=== PATIENT | male | born 1985 | race Two or more races ===

== ENCOUNTER 2023-05-14 13:11 | Outpatient (AMB) | payer OTHER, SELFPAY ==
--- NOTE | 2023-05-14 13:22 | HO.SPINEOV ---
Intake Intake Visit Reasons: back pain Intake Note: Mr. Slater is here today c/o back pain. 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 He reports that he has had persistent numbess and tingling in his L 3rd-5th phalanges (F) since his last post-op visit with DAILY Wyman. He also endorses continued bottom of the foot pain and posterior thigh pain. He reports that standing and bending exacerbate his pain, and that laying down alleviates his pain. He has continued to try OTC pain medications and stretching / walking to help alleviate his symptoms to no avail. He is concerned that his symptoms have worsened to the point where he feels it is difficult for him to work and complete his ADLs. DAILY Wyman recommended that he be re-evaluated 6 months out from last post-op visit and receive a F/U MRI to rule out further disc herniation / nerve impingement if his symptoms persisted. On exam the patient has preserved strength (5/5) in his upper and lower extremities despite eliciting pain. Reflexes 2+ intact in LEs. He does have a (+) straight leg raise on the L side. (-) Babinski, no clonus. He will be sent for a Lumbar MRI without contrast and can be re-assessed post MRI for further interventions. This case was discussed with Dr. Beaver who agrees to this plan. Total amount of time spent in this visit was 20 minutes in discussion of symptoms, prior surgery review and subsequent plan of care. Hiro Beaver MD,PhD [facility] Orders: Orders MR lumbar spine wo con Today M54.16 - Radiculopathy, lumbar region Coding Level of Care Code Global (75899) Diagnoses Lumbar radiculopathy M54.16
== END 2023-05-14 13:30 | disposition home or self-care (01) ==
PROVIDERS: Visit Provider Physician Assistant
DX: M54.16 Radiculopathy, lumbar region (principal)
CPT/HCPCS: 99213

== ENCOUNTER → 2023-05-14 13:11 | Outpatient (BNVA) | payer OTHER, SELFPAY | PROVIDERS: Visit Provider Physician Assistant | DX: M54.16 Radiculopathy, lumbar region (principal) | CPT/HCPCS: 99212 ==

== ENCOUNTER 2023-08-05 10:23 | Outpatient (REF) | payer OTHER, SELFPAY ==
--- NOTE | ~2023-08-05 | MR_ITS ---
EXAMINATION: MR LUMBAR SPINE WITHOUT CONTRAST CLINICAL INFORMATION: Radiculopathy, lumbar region COMPARISON: None available. TECHNIQUE: MRI of the lumbar spine was obtained using routine sequences without contrast. FINDINGS: Mild dextrocurvature of the lumbar spine. Slight straightening of the normal lumbar lordosis. Trace retrolisthesis at L4-L5. No abnormal bone marrow signal. The vertebral body heights are preserved. Multilevel disc desiccation without significant disc height loss. Modic type II endplate changes at L4-L5 and L5-S1. The visualized spinal cord is normal in caliber. No abnormal cord signal. The conus medullaris terminates at L1. T12-L1: No significant spinal canal or neural foraminal narrowing. L1-L2: No significant spinal canal or neural foraminal narrowing. L2-L3: No significant spinal canal or neural foraminal narrowing. L3-L4: Diffuse disc bulge. No significant spinal canal or neural foraminal narrowing. L4-L5: Diffuse disc bulge with superimposed central disc protrusion. Bilateral facet arthrosis. No significant spinal canal or neural foraminal narrowing. L5-S1: Diffuse disc bulge with superimposed left paracentral/subarticular disc protrusion. Bilateral facet arthrosis. No significant spinal canal stenosis. Mild to moderate left with the disc abutting the exiting L5 nerve roots bilaterally. The paravertebral soft tissues are unremarkable. There is dilation of the left renal pelvis with tapering just distal to the UPJ. MR/MR lumbar spine wo con IMPRESSION: -Mild multilevel lumbar spondylosis at L4-L5 and L5-S1. At L5-S1, there is mild to moderate left neural foraminal narrowing secondary to a left paracentral/subarticular disc protrusion which abuts the exiting L5 nerve roots bilaterally. -Nonspecific dilation of the left renal pelvis with tapering just distal to the UPJ. Recommend further evaluation with renal ultrasound if clinically warranted.
== END 2023-08-05 10:24 | disposition home or self-care (01) ==
LOC: HO.MRI 10:23
PROVIDERS: Visit Provider Physician Assistant
DX: M54.16 Radiculopathy, lumbar region (principal)
CPT/HCPCS: 72148

== ENCOUNTER 2023-08-14 13:26 | Outpatient (AMB) | payer OTHER, SELFPAY ==
--- NOTE | 2023-08-14 13:50 | HO.SPINEOV ---
Intake Intake Visit Reasons: numbness left leg Intake Note: Mr. Slater is here today c/o left leg pain and numbness. L/Spine MRI done @ [facility] [place]. Foundation Engineer Required: No Assessment & Plan Assessment & Plan (1) Recurrent herniation of lumbar disc: Code(s): M51.26 - Other intervertebral disc displacement, lumbar region Plan Dear colleague, On 08/14/2023, I saw for follow-up Anibal Slater. He status post L5-S1 lumbar microdiskectomy for left lumbar radiculopathy. He never had a full recovery. He is still experiencing a lot of pain radiating from the buttock down to his leg and he complains of numbness of the outer 3 toes. The pain prevents him from working. His sleep is disturbed due to radiating pain down his left leg. On exam, straight leg raise is positive with radiating pain down his left leg. There is numbness of the outer 3 toes of his left foot. The Achilles reflex is diminished. A repeat MRI done at [facility] on 08/05/2023 shows an L5-S1 disc herniation compressing the left S1 nerve root. In summary, this patient is suffering from a persistent left S1 radiculopathy due to an L5-S1 disc herniation. I scheduled hit him for a recurrent microdiskectomy on October 24, 2022. The patient is totally disabled for work due to his disc disease. I spent 33 minutes in his consult for history, physical exam, review of imaging and discussing plan of care. Alfredo Beaver MD, PhD Spine Fellowship Trained Neurosurgeon Director, [facility] Coding Level of Care Code Est Pt Level 4 (66900) Diagnoses Recurrent herniation of lumbar disc M51.26
== END 2023-08-14 14:08 | disposition home or self-care (01) ==
PROVIDERS: Visit Provider Neurological Surgery
DX: M51.26 Other intervertebral disc displacement, lumbar region (principal)
CPT/HCPCS: 99214

== ENCOUNTER → 2023-08-14 13:26 | Outpatient (BNVA) | payer OTHER, SELFPAY | PROVIDERS: Visit Provider Neurological Surgery | DX: M51.26 Other intervertebral disc displacement, lumbar region (principal) | CPT/HCPCS: 99212 ==

== ENCOUNTER 2023-10-24 07:53 | Day surgery (SDC) | payer OTHER, SELFPAY ==
[2023-10-09 12:10] VITALS: BMI 26.5
[2023-10-24] VITALS (10 sets, daily range): BP systolic 112–130; BP diastolic 67–93; PULSE 67–94; RESP 12–18; TEMP 36.6; O2SAT 92–99; BMI 29.5
--- NOTE | ~2023-10-24 | FL_ITS ---
EXAMINATION: Intraoperative fluoroscopy CLINICAL INFORMATION: Left side microlumbar decompression COMPARISON: Lumbar spine MRI 08/05/2023 TECHNIQUE: Intraoperative fluoroscopy was provided for use by Dr. Beaver. A total of 2 images were saved to PACS. A radiologist was not present during imaging. Today's dictation is only for administrative purposes to document intraoperative fluoroscopic usage. TOTAL FLUOROSCOPIC TIME: 0.0 minutes DAP: 0.034 mGy-cm FL/FL guidance in OR FINDINGS~\^^ Intraoperative fluoroscopy provided for use by Dr. Beaver. Please see operative note for detailed findings.
--- NOTE | 2023-10-24 06:55 | P.HPSUR_ITS ---
Pre-Procedural Eval Section A - 24 Hr Update-Section A only Date of Service: 10/24/23 The patient is an INPATIENT: No Changes since office visit: No Cold of Flu in the past 2 weeks, No New Medical Problems, No Changes in Medication and No Patient answered all questions The patient has been examined within 24 hours of the surgical procedure. The History & Physical has been completed within 30 days and I have reviewed it.: No Section B - Complete if H&P > 30 days Chief Complaint: Other intervertebral disc displacement, lumbar reg Allergies: Allergies Allergy/AdvReac Type Severity Reaction Status Date / Time No Known Allergies Allergy Verified 10/09/23 12:07 Review of Systems Sugical H&P ROS: Negative: Constitution, Cardiovascular, Respiratory, Neurological, Psychiatric, Hem-Onc, Allergic/Immunologic, Gastrointestinal, Genitourinary, Musculoskeletal, Integumentary, Endocrine and Eyes/Ears/Nose/Thr oat Exam Surgical H&P Exam: Not Evaluated: HEENT, Not Evaluated: Heart, Not Evaluated: Lungs, Not Evaluated: Extremities, Not Evaluated: Abdomen, Not Evaluated: Skin and Not Evaluated: Neurological Plan Diagnosis/Plan: Unchanged redo left L5-S1 microdiskectomy Time Spent With Patient Time: Total time managing care of this patient today ___5_ minutes.
[2023-10-24] MEDS: methocarbamoL 750 MG TABLET PO (08:54)
[2023-10-24] MEDS: Lactated Ringers 1,000 ML 80 ML IVCONT (08:54)
[2023-10-24] MEDS: Gabapentin 300 MG CAPSULE PO (08:54)
--- NOTE | 2023-10-24 09:40 | HO.ANESPROP2 ---
HPI - Anesthesia Eval Consult details Narrative: Lumbar Radiculopathy PMFSH Active Problems Active Problems: All Active Problems (Updated 10/09/23 @ 12:05 by Goldie Ricketts RN) Recurrent herniation of lumbar disc (Acute) Lumbar radiculopathy (Acute) Past Medical History Medical History Low back pain Congenital abnormality ureter H/O heartburn Depression Numbness and tingling of left leg Asthma Family History Family history of problems with anesthesia: No Surgical History Surgical History Hx of decompressive lumbar laminectomy (~07/2022) History of pyeloplasty (~2021) History of Problems with Anesthesia: No Social History Social History Household Members: Other Household Members Other:: mother Housing: Apartment Are you a primary family day care provider to a significant other at home: No Do you presently have visiting nurse or other home services: No Patient Tobacco Use Status: Never used Tobacco Use of substances other than those prescribed or required for medical reasons: Yes Substance Use Type: Marijuana Substance Use Frequency: Daily Have you been hit, kicked, punched, or otherwise hurt by someone within the past year? If so, by whom?: No Are you DNR?: No Advance Directives: No Advance Directives Information Provided: Yes Advance Directives on File: No Recently lost weight without trying: No Nutrition Risks: No Nutritional Risk Poor oral hygiene: No Meds Allergies Allergy/AdvReac Type Severity Reaction Status Date / Time No Known Allergies Allergy Verified 10/24/23 08:14 Active Medications: Current Medications Lactated Ringer's (Lr) 1,000 mls @ 80 mls/hr IVCONT .[id number] EUSEBIO Last Admin: 10/24/23 08:54 Dose: 80 mls/hr Home Medications Medication Instructions Recorded Confirmed Last Taken Type Tums PO PRN Heartburn 10/09/23 Unknown History Exam Height,Weight and Vital Signs: Height 5 ft 10 in Weight 93.259 kg Last Vital Signs Temp 97.9 F 10/24/23 08:45 Pulse 87 10/24/23 08:45 Resp 18 10/24/23 08:45 BP 126/79 10/24/23 08:45 Pulse Ox 96 10/24/23 08:45 O2 Del Method Room Air 10/24/23 08:45 Airway Mallampati Class: III TM Dist: >3cm Neck ROM: Full Loose/Missing/Broken Teeth: No Heart: rrr+s1s2 Lungs: cta b/l Assessment and Plan Assessment Anesthesia Assessment: Anesthesia Plan Discussed and Chart Reviewed Final Anesthetic Review Family History of Problems with Anesthesia: No History of Problems with Anesthesia: No NPO: Yes ASA Class: II Final Preanesthetic Review: No Changes in Pt Med Stat, Meds/Allgs Chart Reviewed, Consent Obtained/Reviewed and Anes Risks/Benef Reviewed Patient Risk: Intermediate Procedure Risk: Intermediate Assessment/Block/Sedation in SS: Assess/Block/Sedation-SS Anesthetic Plan Anesthetic Plan: GA Disposition: Standard PACU
--- NOTE | 2023-10-24 10:00 | P.OP_ITS ---
Operative Note Operative Note Date of Service: 10/24/23 Narrative: Preoperative diagnosis: Persistent S1 radiculopathy due to possible disc herniation Postoperative diagnosis: Absent recurrent disc herniation Procedure: Recurrent Left L5-S1 lumbar microdiskectomy with microscope Surgeon: Alfredo Beaver MD, PhD Ent Physician: Jordy calixto This patient underwent an L5-S1 lumbar microdiskectomy in the past but continues to complain of a persistent left S1 radiculopathy. An MRI maybe shows ongoing S1 nerve root compression therefore the patient was offered a re-exploration. The procedure complications were explained. The patient was consented. The patient was brought to the operating room and endotracheally intubated. The patient was turned in a prone position on the Ralph frame. Prepping and draping was done followed by time-out. The previous mid lumbar incision was made followed by release of the paravertebral muscles on the left side to expose the L5-S1 interspace. An intraoperative x-rays obtained to confirm the correct level. The microscope was brought in. The previous L5 laminotomy was extended cranially after which the dura was identified. Scar tissue was relieved after which S1 nerve root was identified. A nerve hook was used to go under the nerve root and no significant compression was found other than a small L5-S1 spondylolisthesis. A redo diskectomy was not required. Hemostasis was done. The microscope was removed. Marcaine was injected intramuscularly.The incision was closed in two layers. Steri-Strips used to approximate seizure. An op-site were taken there was used to cover the incision. All sponge and needle counts were correct. Patient was extubated and transported in stable condition to recovery room. this procedure was done with the aid of a physician account management assistant who performed the initial exposure until the microscope was brought in and performed the closure of the incision. Anesthesia: General Blood loss: 10 mL Complications: None Specimen: None Surgical time: Disposition: Discharge home
--- NOTE | 2023-10-24 10:08 | PM.DS ---
DS: Providers Provider Date of Service: 10/24/23 Date of discharge: 10/24/23 Primary care physician: Keith Desir MD Admitting clinician: Alfredo Beaver DS: Diagnosis Discharge Diagnosis (1) Recurrent herniation of lumbar disc: Status: Acute DS: Summary Time Attestation Discharge coordination time: Less than 30 minutes Quality: Safe Use of Opioids Does Pt have an Active Cancer Diagnosis on the Problem List?: No Quality: Stroke Does the patient have a stroke diagnosis?: No Physical Exam Vital Signs: Vital Signs: Last Vital Signs Temp 97.9 F 10/24/23 08:45 Pulse 87 10/24/23 08:45 Resp 18 10/24/23 08:45 BP 126/79 10/24/23 08:45 Pulse Ox 96 10/24/23 08:45 O2 Del Method Room Air 10/24/23 08:45 BMI result Body Mass Index 29.5 Discharge Plan Discharge Patient Disposition: Home, Self-Care Referrals: Keith Desir MD [Primary Care Provider] - 1 Week Discharge Medications: New oxycodone 5 mg tablet 5 mg PO Q4H PRN (Reason: pain) Qty: 20 0RF Rx Instructions: Partial Fill upon patient request. No Action Tums PO PRN (Reason: Heartburn) Discharge Orders: Discharge Order (Routine); Ordered 10/24/23 Ordered By: Jordy Wyman Diet: Advance to usual diet Activity on Discharge: As tolerated Activity Restrictions/Additional Instructions: After your spinal surgery we ask you to observe the following restrictions/guidelines: Activity: It is normal to feel some discomfort as you increase your activity, but that will improve with time. We ask you avoid heavy lifting or acitivities that cause pain. As a general rule, 8lbs is a safe limit for lifting right after surgery. Walk as much as you feel comfortable but not to exhaustion. You will feel extra tired the first few days after surgery. Stay well hydrated. It is OK to walk up and down stairs You may return to driving when you are off narcotics (such as vicodin, oxycodone, dilaudid, etc), and you are back to normal functional capacity. If you have any concerns please check with office before driving. Return to work is specific to each patient and each surgery, so please speak with your doctor/PA at first follow up. Please bring paperwork such as FMLA at that time if you need it filled out. Medications: For optimum pain control, it is best to start with a combination of 500 mg of Tylenol every 4 hours with 600 mg of Motrin every 8 hours, and use narcotics as needed in between for breakthrough pain. We will give you a short supply of narcotics after surgery (usually one weeks worth). If you need more please call the office but do not use more than prescribed. You will need to give our office 48 hours notice if you need narcotics refilled and we do not fill narcotics on weekends or evenings. If you are on a narcotic, it is a good idea to take a stool softener such as colace or senna to avoid constipation If you take blood thinner such as aspirin, Plavix, Coumadin, Effient, Eliquis etc for conditions such as Afib, DVT, Pulmonary embolus, coronary disease, stents etc please speak with your surgeon about specific details as to when you can resume these medications. You can resume NSAIDs on post op day 1 (eg: Motrin, Naproxen, etc). Follow up: Please call the office, , after surgery to arrange a 3 week follow up for wound check. Wound Care: You may remove your dressing on the first day after surgery. ?You may ?leave open to air. Please do not remove the steri strips underneath. they will fall off on their own in one week. IT IS NORMAL FOR THE WOUND TO OOZE OR BE BLOODY FOR A FEW DAYS AFTER SURGERY. ?IF THIS HAPPENS JUST PLACE NEW DRESSING OVER IT TO AVOID STAINING CLOTHES. You may shower on post op day # 1 We ask that you do not let the water soak the wound. If it does get wet, just towel dry lightly. Please do not scrub your incision or place any type of chemical/ointment on the wound. No tub baths, pools or jacuzzis for one month. If you have any leaking or redness from your wound, or fevers, please call office
[2023-10-24] MEDS: fentaNYL citrate/PF 100 MCG/2 ML VIAL 50 MCG IVPUSH (10:43)
[2023-10-24] MEDS: oxyCODONE HCl Immed Release 5 MG TABLET PO (10:54)
== END 2023-10-24 12:54 | disposition home or self-care (01) ==
PROVIDERS: PCP Family Medicine; Visit Provider Neurological Surgery
PROC: (CPT 63042; principal; 2023-10-24 09:40)
DX: M51.26 Other intervertebral disc displacement, lumbar region (principal); M54.17 Radiculopathy, lumbosacral region; M43.17 Spondylolisthesis, lumbosacral region; J45.909 Unspecified asthma, uncomplicated; F12.90 Cannabis use, unspecified, uncomplicated; Z98.890 Other specified postprocedural states
CPT/HCPCS: 63042; J0131; J0690; J1100; J1170; J1885; J2250; J2405; J2704; J3010

== ENCOUNTER → 2023-10-24 07:53 | Outpatient (BNV) | payer OTHER, SELFPAY | PROVIDERS: PCP Family Medicine; Visit Provider Neurological Surgery | DX: M51.26 Other intervertebral disc displacement, lumbar region (principal) | CPT/HCPCS: 63042; 99499 ==

== ENCOUNTER 2023-11-12 15:20 | Outpatient (AMB) | payer OTHER, SELFPAY ==
--- NOTE | 2023-11-12 15:30 | HO.SPINEOV ---
Intake Intake Visit Reasons: 1st post op Intake Note: Mr. Slater is here today for his 1st post-op visit. Digital Photo Printer Required: No Allergies No Known Allergies Allergy (Verified 10/24/23 08:14) Assessment & Plan Assessment & Plan (1) Recurrent herniation of lumbar disc: Code(s): M51.26 - Other intervertebral disc displacement, lumbar region Plan Procedure: Recurrent Left L5-S1 lumbar microdiskectomy Anibal comes in today for his 1st postoperative visit. He reports he is satisfied with the surgery and feels better than he did pre-operatively. He still reports mild shooting pain down his posterior calf and some nonspecific tingling that remains in the bottom of his left foot. He feels these are normal postoperative vestiges, that will get better with time. He is completing all of his ADLs without issue. We discussed postoperative healing course, and he was encouraged to set a goal walking 1 mile per day. He was informed that he should not be weightlifting or bending excessively at this time. No new neurological deficits. Patient is able to ambulate well, rises from a seated position without difficulty. Incision site is closed, well healing, with no signs of drainage. We will follow-up with the patient in 6 weeks for his 2nd postoperative visit. Hiro Beaver MD,PhD [facility] Coding Level of Care Code Global (94034) Diagnoses Recurrent herniation of lumbar disc M51.26
== END 2023-11-12 15:45 | disposition home or self-care (01) ==
PROVIDERS: PCP Family Medicine; Visit Provider Physician Assistant
DX: M51.26 Other intervertebral disc displacement, lumbar region (principal)
CPT/HCPCS: 99024

== ENCOUNTER → 2023-11-12 15:20 | Outpatient (BNVA) | payer OTHER, SELFPAY | PROVIDERS: PCP Family Medicine; Visit Provider Physician Assistant | DX: Z48.89 Encounter for other specified surgical aftercare (principal); M51.26 Other intervertebral disc displacement, lumbar region | CPT/HCPCS: 99212 ==

== ENCOUNTER 2023-12-03 13:46 | Outpatient (AMB) | payer OTHER, SELFPAY ==
--- NOTE | 2023-12-03 14:03 | A.SPINEOV_ITS ---
Intake Intake Visit Reasons: back pain and swollen Intake Note: Mr. Slater is here today c/o back pain and swelling. Casino Floorperson Required: No Allergies No Known Allergies Allergy (Verified 10/24/23 08:14) Assessment & Plan Assessment & Plan (1) Lumbar radiculopathy: Code(s): M54.16 - Radiculopathy, lumbar region Plan Dear colleague, On 12/03/2023, I saw for a follow-up Anibal Slater. He is status post 2nd surgery for ongoing left leg pain on 10/25/2023. He is slowly recovering. He comes in today cause he noticed a swelling on his back after more activity. On inspection, the incision is healed. There is no clear swelling at the moment. I explained to the patient that increase activity most likely causes swelling of his musculature. He admitted that it started after he was advised to walk a mi a day. I told him to reduce the amount of activity to a level that he thinks is tolerable. I would like to follow-up in 2 months. Alfredo Beaver MD, PhD Spine Fellowship Trained Neurosurgeon Director, [facility] [place] [facility] Coding Level of Care Code Global (18094) Diagnoses Lumbar radiculopathy M54.16
== END 2023-12-03 14:24 | disposition home or self-care (01) ==
PROVIDERS: PCP Family Medicine; Visit Provider Neurological Surgery
DX: M54.16 Radiculopathy, lumbar region (principal)
CPT/HCPCS: 99024

== ENCOUNTER → 2023-12-03 13:46 | Outpatient (BNVA) | payer OTHER, SELFPAY | PROVIDERS: PCP Family Medicine; Visit Provider Neurological Surgery | DX: M54.16 Radiculopathy, lumbar region (principal) | CPT/HCPCS: 99212 ==

== ENCOUNTER 2024-02-07 11:24 | Outpatient (AMB) | payer OTHER, SELFPAY ==
--- NOTE | 2024-02-07 12:02 | A.SPINEOV_ITS ---
Intake Visit Reasons: 2month follow Intake Note: Mr. Slater is here today for a 2month F/u Clinical Exercise Specialist Required: No Allergies No Known Allergies Allergy (Verified 02/07/24 12:05) Assessment & Plan Assessment & Plan (1) Lumbar radiculopathy: Code(s): M54.16 - Radiculopathy, lumbar region Category: Medical (2) Previous back surgery: Code(s): Z98.890 - Other specified postprocedural states Category: Surgical Plan Dear colleague, On February 07, 2024, I saw for follow-up Anibal Slater. He underwent 2 surgeries to decompress the nerve root for left-sided leg pain. Unfortunately, the pain is not improving. He feels his foot is swollen when he puts on a shoe. At night he has severe back pain any constantly has to switch around to relieve the back and leg pain. We decided on repeating an MRI with contrast but I am suspicious that he is suffering from permanent neuropathy. I will see him back after the MRIs done. Alfredo Beaver MD, PhD Spine Fellowship Trained Neurosurgeon Director, [facility] [place] [facility] Orders: Orders MR lumbar spine wo/w con Today M54.16 - Radiculopathy, lumbar region, Z98.890 - Other specified postprocedural states Coding Level of Care Code Global (50009) Diagnoses Lumbar radiculopathy M54.16 Previous back surgery Z98.890
== END 2024-02-07 12:29 | disposition home or self-care (01) ==
PROVIDERS: PCP Family Medicine; Visit Provider Neurological Surgery
DX: M54.16 Radiculopathy, lumbar region (principal); Z98.890 Other specified postprocedural states
CPT/HCPCS: 99213

== ENCOUNTER → 2024-02-07 11:24 | Outpatient (BNVA) | payer OTHER, SELFPAY | PROVIDERS: PCP Family Medicine; Visit Provider Neurological Surgery | DX: M54.16 Radiculopathy, lumbar region (principal); Z98.890 Other specified postprocedural states | CPT/HCPCS: 99212 ==

== ENCOUNTER 2024-03-03 10:56 | Outpatient (REF) | payer OTHER, SELFPAY ==
--- NOTE | ~2024-03-03 | XR_ITS ---
EXAMINATION: XR LUMBOSACRAL SPINE WITH OBLIQUES CLINICAL INFORMATION: Postprocedural state. COMPARISON: Fluoroscopy in OR of 10/24/2023, MR lumbar spine 08/05/2023 TECHNIQUE: 4 views of the lumbar spine. FINDINGS: Mild dextroscoliosis of the thoracolumbar spine. Slight straightening of the normal lumbar lordosis. Facet arthritis in the [id number] lumbar spine. Mild multilevel lumbar spondylosis with mild loss of disc space height at L4-L5 and L5-S1. Alignment preserved on flexion and extension views. XR/XR lumbar spine 4V min IMPRESSION: Mild multilevel lumbar spondylosis with mild loss of disc space height at L4-L5 and L5-S1.
== END 2024-03-03 10:57 | disposition home or self-care (01) ==
LOC: HO.HOSX 10:56
PROVIDERS: Visit Provider Neurological Surgery
DX: M54.16 Radiculopathy, lumbar region (principal); Z98.890 Other specified postprocedural states
CPT/HCPCS: 72110

== ENCOUNTER 2024-04-02 14:45 | Outpatient (AMB) | payer OTHER, SELFPAY ==
--- NOTE | 2024-04-02 15:06 | HO.SPINEOV ---
Intake Visit Reasons: neurological exam/to approve MRI Intake Note: Mr. Slater, 39 y/o male, is here today for a neurological exam. Money Counter Required: No Allergies No Known Allergies Allergy (Verified 02/07/24 12:05) Assessment & Plan Assessment & Plan (1) Recurrent herniation of lumbar disc: Code(s): M51.26 - Other intervertebral disc displacement, lumbar region Category: Medical Plan Mr Slater is here in follow-up. An MRI of his lumbar spine was ordered by Dr. Beaver for persistent low back pain and left S1 radiculopathy but apparently according to the insurance company, that required an x-ray and a re-evaluation by 1 of the practitioners here in the office. I brought him back in and we reviewed everything again. This gentleman has had a history of a herniated disc in his back at L5-S1 on the left. He was in severe pain before that original surgery a few years back and underwent a discectomy with improvement, however did not have complete relief of the pain. Specifically, he has low back pain which radiates up his paraspinal musculature and with any flexion of his hip with extension of his knee in similar fashion to a straight leg raise test, will cause him to have severe pain radiating down the back of his leg into his calf into the outer part of his left foot. He will also see us gastrocnemius muscle cramping and spasming. He has undergone a 2nd operation after there were equivocal findings on an MRI done and we did not find any recurrent disc herniation. This is a let us this suspicion that this is a nerve injury related to his original disc herniation and will not respond to any surgery, however we wanted to do 1 final postoperative MRI just as a precaution. He has done medication trials postoperatively but no therapy or injections. This would include steroids, anti-inflammatories and muscle relaxers. On exam, he has no focal deficits but he does have an antalgic gait, positive straight leg raise at 20 degrees and absent Achilles reflexes bilaterally. Please accommodate this gentleman and allow his MRI to be ordered so we can exclude any residual compression on the nerve. We did briefly discuss the option of a spinal cord stimulator if the MRI is negative. For the record, he had lumbar x-rays but these did not show anything meaningful, his alignment is normal just some moderate degeneration at L5-S1. Total amount of time spent in this visit was 20 minutes in discussion of symptoms, lumbar X imaging results and subsequent plan of care Jordy Beaver MD,PhD [facility] Coding Level of Care Code Est Pt Level 3 (13904) Diagnoses Recurrent herniation of lumbar disc M51.26
== END 2024-04-02 15:20 | disposition home or self-care (01) ==
PROVIDERS: PCP Family Medicine; Visit Provider Physician Assistant
DX: M51.26 Other intervertebral disc displacement, lumbar region (principal)
CPT/HCPCS: 99213

== ENCOUNTER → 2024-04-02 14:45 | Outpatient (BNVA) | payer OTHER, SELFPAY | PROVIDERS: PCP Family Medicine; Visit Provider Physician Assistant | DX: M51.26 Other intervertebral disc displacement, lumbar region (principal) | CPT/HCPCS: 99212 ==

== ENCOUNTER 2024-05-11 12:43 | Outpatient (REF) | payer OTHER, SELFPAY ==
--- NOTE | ~2024-05-11 | MR_ITS ---
MR LUMBAR SPINE WITHOUT AND WITH CONTRAST CLINICAL INFORMATION: Lumbar region radiculopathy. COMPARISON: Lumbar spine radiographs August 05, 2023. Lumbar spine MRI August 05, 2023. TECHNIQUE: MRI of the lumbar spine was obtained using routine sequences with and without contrast. Intravenous contrast: 9 mL of Gadavist. FINDINGS: There are 5 nonrib-bearing lumbar-type vertebral bodies. Lumbar alignment is maintained. The vertebral body heights are preserved. There is moderate disc volume loss at L5-S1 and there is mild disc volume loss at L4-L5 with disc desiccation at both levels. There are Modic type I and limited to endplate signal changes at L5-S1 there are Modic degenerative endplate signal changes at L4-L5. There is a new partially imaged 1.6 cm region of enhancement within the upper T11 vertebral body, most likely enhancement related to an upper endplate Schmorl's node in this location that can be followed with a dedicated thoracic spine MRI or thoracic spine CT. There is no pathologic enhancement along the cauda equina nerve roots. The imaged lower thoracic spinal cord is unremarkable and the conus terminates at the T12-L1 level. Extrarenal pelvis on the left. Left-sided IVC. L1-L2: Posterior disc contour is normal. There is no central canal stenosis and there is no foraminal stenosis. L2-L3: Posterior disc contour is normal. There is mild bilateral facet arthropathy. There is no central canal stenosis and there is no foraminal stenosis. Findings unchanged. L3-L4: There is a diffuse annular disc bulge with a superimposed shallow central disc protrusion and there is mild bilateral facet arthropathy. There is no central canal stenosis and there is no foraminal stenosis. Findings are unchanged. L4-L5: Diffuse annular disc bulge with a superimposed shallow central disc protrusion and mild bilateral facet arthropathy. There is no central canal stenosis. There is mild foraminal encroachment bilaterally. L5-S1: There are redemonstrated postoperative changes following left hemilaminectomy and microdiscectomy. There is enhancing granulation/scar tissue within the left epidural space that partially encases the traversing left S1 nerve root. The previously seen left paracentral disc protrusion is decreased in size resulting in decreased now mild mass effect on the traversing left S1 nerve root. Osteophytic ridging and facet arthropathy result in mild bilateral foraminal encroachment. MR/MR lumbar spine wo/w con IMPRESSION: * At L5-S1, there are redemonstrated postoperative changes following left hemilaminectomy and microdiscectomy. There is enhancing granulation/scar tissue within the left epidural space that partially encases the traversing left S1 nerve root. Decrease in size of the previously seen left paracentral disc protrusion at this level then now results in slight posterior deflection of the traversing left S1 nerve root within the left subarticular zone without residual extrinsic compression. * Additional stable spondylitic changes as discussed above. Electronically signed by: Patrice Sosa MD 05/31/2024 03:40 PM EDT
[2024-05-11] MEDS: gadobutroL 10 ML VIAL IVPUSH (13:16)
== END 2024-05-11 12:44 | disposition home or self-care (01) ==
LOC: HO.MRI 12:43
PROVIDERS: PCP Family Medicine; Visit Provider Neurological Surgery
DX: M54.16 Radiculopathy, lumbar region (principal); Z98.890 Other specified postprocedural states
CPT/HCPCS: 72158; A9585

== ENCOUNTER 2024-06-29 11:38 | Outpatient (AMB) | payer OTHER, SELFPAY ==
[2024-06-29 11:41] VITALS: BP 118/60; PULSE 60; RESP 14; O2SAT 98; BMI 28.7
--- NOTE | 2024-06-29 11:41 | A.OFFVIS_ITS ---
Vital Signs 06/29/24 11:41 Height 5 ft 10 in Weight 200 lb BMI 28.7 BP 118/60 Blood Pressure Location Lt brachial Position Sitting Respiration 14 Pulse 60 Pulse Source Pulse Oximeter Pulse Oximetry (%) 98 Oxygen Delivery Method Room Air Intake Visit Reasons: lumbar radiculopathy Allergies No Known Allergies Allergy (Verified 06/29/24 11:43) Medication List - Last Reconciled 06/29/24 by Kinjal Zuluaga LPN [Tums PO PRN] HPI HPI lumbar radiculopathy: Details: 39-year-old male who presents today to the office for lumbar radiculopathy. The patient had L5-S1 microdiskectomy in August 2022 but never had a full recovery. He still experiencing a lot of pain radiating from the buttock down to his leg. He reports that he has had persistent numbness and tingling in his left leg, 3rd?5th phalanges. He also endorses continued bottom of the foot pain and posterior thigh pain. The pain prevents him from working. His sleep is disturbed due to radiating pain down his left leg. He underwent recurrent left L5-S1 lumbar microdiscectomy on 10/24/23 and felt better post procedure. He still reports mild shooting pain down his posterior calf and some nonspecific tingling that remains in the bottom of his left foot. At night he has severe back pain and constantly has to switch around to relieve the back and leg pain. He reports that standing and bending exacerbate his pain, and that laying down alleviates his pain. He has continued to try OTC pain medications and stretching/walking to help alleviate his symptoms, to no avail. [facility] Medical History Low back pain Congenital abnormality ureter H/O heartburn Depression Numbness and tingling of left leg Asthma Surgical History Hx of decompressive lumbar laminectomy (~07/2022) History of pyeloplasty (~2021) Social History Household Members: Other Household Members Other:: mother Housing: Apartment Are you a primary before and after school daycare worker to a significant other at home: No Do you presently have visiting nurse or other home services: No Patient Tobacco Use Status: Never used Tobacco Substance Use Type: Marijuana Review of Systems Const All systems reviewed & are unremarkable except as noted in HPI and below Physical Exam Vital Signs: Last Vital Signs Pulse 60 06/29/24 11:41 Resp 14 06/29/24 11:41 BP 118/60 06/29/24 11:41 Pulse Ox 98 06/29/24 11:41 Oxygen Delivery Method Room Air 06/29/24 11:41 BMI result Body Mass Index 28.7 General: Appears afebrile. Alert and oriented. Mood and affect appropriate. Follows and participates in conversation appropriately. Respiratory effort is unlabored. Able to transition from sit to stand unassisted. Ambulates with bilaterally normal heel strike and toe off. Results Reviewed Results Reviewed: 05/11/24: MR LUMBAR SPINE WITHOUT AND WITH CONTRAST FINDINGS: There are 5 nonrib-bearing lumbar-type vertebral bodies. Lumbar alignment is maintained. The vertebral body heights are preserved. There is moderate disc volume loss at L5-S1 and there is mild disc volume loss at L4-L5 with disc desiccation at both levels. There are Modic type I and limited to endplate signal changes at L5-S1 there are Modic degenerative endplate signal changes at L4-L5. There is a new partially imaged 1.6 cm region of enhancement within the upper T11 vertebral body, most likely enhancement related to an upper endplate Schmorl's node in this location that can be followed with a dedicated thoracic spine MRI or thoracic spine CT. There is no pathologic enhancement along the cauda equina nerve roots. The imaged lower thoracic spinal cord is unremarkable and the conus terminates at the T12-L1 level. Extrarenal pelvis on the left. Left-sided IVC. L1-L2: Posterior disc contour is normal. There is no central canal stenosis and there is no foraminal stenosis. L2-L3: Posterior disc contour is normal. There is mild bilateral facet arthropathy. There is no central canal stenosis and there is no foraminal stenosis. Findings unchanged. L3-L4: There is a diffuse annular disc bulge with a superimposed shallow central disc protrusion and there is mild bilateral facet arthropathy. There is no central canal stenosis and there is no foraminal stenosis. Findings are unchanged. L4-L5: Diffuse annular disc bulge with a superimposed shallow central disc protrusion and mild bilateral facet arthropathy. There is no central canal stenosis. There is mild foraminal encroachment bilaterally. L5-S1: There are redemonstrated postoperative changes following left hemilaminectomy and microdiscectomy. There is enhancing granulation/scar tissue within the left epidural space that partially encases the traversing left S1 nerve root. The previously seen left paracentral disc protrusion is decreased in size resulting in decreased now mild mass effect on the traversing left S1 nerve root. Osteophytic ridging and facet arthropathy result in mild bilateral foraminal encroachment. IMPRESSION: * At L5-S1, there are redemonstrated postoperative changes following left hemilaminectomy and microdiscectomy. There is enhancing granulation/scar tissue within the left epidural space that partially encases the traversing left S1 nerve root. Decrease in size of the previously seen left paracentral disc protrusion at this level then now results in slight posterior deflection of the traversing left S1 nerve root within the left subarticular zone without residual extrinsic compression. Assessment & Plan Assessment & Plan (1) Lumbar radiculopathy: Code(s): M54.16 - Radiculopathy, lumbar region Category: Medical (2) Postlaminectomy syndrome: Code(s): M96.1 - Postlaminectomy syndrome, not elsewhere classified Category: Medical Plan Discussed spinal cord stimulator as a possible treatment option. Will place a referral for psychology clearance. Once we have received psychology clearance, we will plan for trial of spinal cord stimulator. The patient will receive a call from [facility] for the psychology assessment. Scribed for Dr. Medina by Talha Montano, medical education specialist, on 06/29/2024. I, Dr. Medina, have personally reviewed and agree with the information entered by the scribe. Coding Level of Care Code New Pt Level 4 (00361) Diagnoses Lumbar radiculopathy M54.16 Postlaminectomy syndrome M96.1
== END 2024-06-29 11:58 | disposition home or self-care (01) ==
LOC: HO.PMC 11:38
PROVIDERS: PCP Family Medicine; Visit Provider Internal Medicine
DX: M54.16 Radiculopathy, lumbar region (principal); M96.1 Postlaminectomy syndrome, not elsewhere classified
CPT/HCPCS: 99204

== ENCOUNTER → 2024-06-29 11:38 | Outpatient (BNVA) | payer OTHER, SELFPAY | PROVIDERS: PCP Family Medicine; Visit Provider Internal Medicine | DX: M54.16 Radiculopathy, lumbar region (principal); M96.1 Postlaminectomy syndrome, not elsewhere classified | CPT/HCPCS: 99202 ==

== ENCOUNTER 2025-04-14 11:41 | Day surgery (SDC) | payer OTHER, SELFPAY ==
--- OUTSIDE RECORDS SUMMARY | 2025-04-07 15:31 | XMS_ITS | Clinical Summary ---
Author Organization [address] [facility] Building Address [address] [place] [address] Phone Care Team Providers Care Checkout Operator Name Role Phone [place] Primary Care Provider [phone] Allergies Active Allergy Reactions Criticality Noted Date Comments Other 04/22/2023 Seasonal Allergies- Post nasal , facial pressure Trazodone 05/08/2023 Confussion, up set stomach and diarrhea Medications QUEtiapine (SEROquel) 50 mg tablet Take 1 tablet (50 mg total) by mouth at bedtime. Active ALPRAZolam (NIRAVAM) 0.5 mg dispersible tablet Dissolve 1 tablet (0.5 mg total) on top of the tongue at bedtime as needed for anxiety. Max Daily Amount: 0.5 mg Active DULoxetine (CYMBALTA) [address] capsule Take 1 capsule (30 mg total) by mouth 1 (one) time each day. Do not crush or chew. Active prazosin (MINIPRESS) 2 mg capsule Take 1 capsule (2 mg total) by mouth at bedtime. Active cyclobenzaprine (FLEXERIL) 10 mg tablet Take 1 tablet (10 mg total) by mouth at bedtime. 30 each 1 5 04/10/20 25 Active Active Problems Problem Noted Date Diagnosed Date Depression 04/22/2023 Lumbar disc herniation 07/06/2022 Overview (07/15/2024): Last Assessment & Plan: Patient is 3 weeks s/p left L5-S1 microdiscectomy. He states his left leg pain is much improved compared with preop, he still has some numbness under the left foot, pain in the calf with walking. He states now when he is walking the calf pain might get up to a 5/10, preop it was constantly a 10/10 limiting all his activities. He denies fever, sweats chills, wound drainage, bowel bladder incontinence. He has been active and walking. He still requires oxycodone from time to time for pain. Mr. Slater is doing well postop, has significant improvement in his left radicular symptoms. He has a follow-up appointment scheduled with Dr. Beaver in 6 weeks, can cancel it if his symptoms have resolved by then. All postop questions answered. He was given a refill on his oxycodone #30 tabs. [facility] reviewed. Asthma 02/27/2022 Chronic bilateral low back pain without sciatica 02/27/2022 Encounters Date Type Department Care Team Description 02/09/2025 11:30 AM EDT Office Visit Walk-In Clinic - [address] [phone] Tram Reardon NP Chronic bilateral low back pain without sciatica (Primary Dx) 02/08/2025 Telephone Internal Medicine - [address] [phone] Eryn Draper, Back Pain from Last 3 Months Immunizations Name Administration Dates Next Due Tdap Tetanus diptheria acell ular pertussis (Boostrix; Adacel) 7yo and older 02/27/2022 Surgical History Surgery Date Site/Laterality Comments OTHER SURGICAL HISTORY Left PROCEDURE: [place] PYELOPLASTY COMPLICATED; 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 Beaver Medical History Medical History Date Comments Asthma 02/27/2022 DX:Asthma Family History Medical History Relation Name Comments No Known Problems Brother 1 No Known Problems Brother 2 No Known Problems Father Alzheimer's disease Maternal Grandfather Other cancer Maternal Grandmother Asthma Mother Depression Mother Alcohol abuse Paternal Grandfather No Known Problems Paternal Grandmother No Known Problems Sister 1 No Known Problems Sister 2 No Known Problems Sister 3 Relation Name Status Comments Brother 1 Alive Brother 2 Alive Father Alive Maternal Grandfather Alive Maternal Grandmother Alive Mother Alive Paternal Grandfather Paternal Grandmother Alive Sister 1 Alive Sister 2 Alive Sister 3 Alive Social History Tobacco Use Types Packs/Day Years Used Date Smoking Tobacco: Never Smokeless Tobacco: Never Tobacco Cessation:Counseling Given: Not Answered Alcohol Use Standard Drinks/Week Comments Never 0 (1 standard drink = 0.6 oz pur e alcohol) Sex and Gender Information Value Date Recorded Sex Assigned at Not on file Legal Sex Male 4:56 AM EST Gender Identity Not on file Sexual Orientation Not on file Obstetrics History Last Filed Vital Signs Vital Sign Reading Time Taken Comments Blood Pressure 110/72 10/28/2024 11:26 AM EST Pulse 78 10/28/2024 11:26 AM EST Temperature 36.6 C (97.9 F) 09/18/2024 1:26 PM EST Respiratory Rate 18 09/18/2024 1:26 PM EST Oxygen Saturation 98% 09/18/2024 1:26 PM EST Inhaled Oxygen Concentration - - Weight 93.4 kg (206 lb) 10/28/2024 11:26 AM EST Height 177.8 cm (5' 10 ) 09/18/2024 1:26 PM EST Body Mass Index 29.56 09/18/2024 1:26 PM EST Plan of Treatment Upcoming Encounters Date Type Department Care Team (Late st Contact Info) Description 04/27/2025 11:00 AM EDT [facility] [address] [place] [address] Shun Tavera PA [address] [place] [address] Health Maintenance Due Date Last Done Comments Hepatitis B Vaccines (1 of 3 - 19+ 3-dose series) 01/28/2004 Pneumococcal Vaccine: Pediatrics (0 to 5 Years) and At-Risk Patients (6 to 49 Years) (1 of 2 - PCV) 01/28/2004 Depression Screening 09/02/2022 HIV Screening 09/02/2022 Hepatitis C Screening 09/02/2022 Social Influencers of Health Screening 09/02/2022 COVID-19 Vaccine (3 - 2023-2 5 season) 2024 03/07/2021, 02/14/2021 Influenza Vaccine (#1) 2025 Cholesterol Screening (Lipid Panel) 10/28/2029 10/28/2024, 02/27/2022 DTaP,Tdap,and Td Vaccines (2 - Td or Tdap) 02/28/2032 02/27/2022 HIB Vaccines Aged Out No longer eligi ble based on patient's age to complete this topic HPV Vaccines Aged Out No longer eligi ble based on patient's age to complete this topic Hepatitis A Vaccines Aged Out No long er eligible based on patient's age to complete this topic IPV Vaccines Aged Out No longer eligi ble based on patient's age to complete this topic MMR Vaccines Aged Out No longer eligi ble based on patient's age to complete this topic Meningococcal ACWY Vaccine Aged Out N o longer eligible based on patient's age to complete this topic Meningococcal B Vaccine Aged Out No l onger eligible based on patient's age to complete this topic RSV Immunization Patients Under 20 months Aged Out No longer eligible b ased on patient's age to complete this topic Varicella Vaccines Aged Out No longer eligible based on patient's age to complete this topic Procedures Procedure Name Priority Date/Time Associated Diagnosis Comments LIPID PANEL WITH REFLEX TO DIRECT LDL Routine 10/28/2024 12:52 PM EST Health maintenance examination from Last 3 Months or Most Recently Relevant to Health Maintenance Results * Lipid panel with reflex to direct LDL (10/28/2024 12:52 PM EST) Cholesterol 153 0 - 200 mg/dL LAB CHEMISTRY METHOD 10/28/2024 7:40 PM EST [facility] Triglycerides 106 0 - 150 mg/dL LAB CHEMISTRY METHOD 10/28/2024 7:40 PM EST [facility] HDL 49 >=40 mg/dL LAB CHEMISTRY METHOD 10/28/2024 7:40 PM EST [facility] LDL Calculated 83 0 - 100 mg/dL LAB CHEMISTRY METHOD 10/28/2024 7:40 PM [facility] VLDL Cholesterol Bg 21.2 mg/dL LAB CHEMISTRY METHOD 10/28/2024 7:40 PM EST [facility] Non HDL Chol. (LDL+VLDL) 104 <145 mg/dL LAB CHEMISTRY METHOD 10/28/2024 7:40 PM EST [facility] Chol/HDL Ratio 3.1 0.0 - 4.4 LAB CHEMISTRY METHOD 10/28/2024 7:40 PM EST [facility] Blood Venous blood specimen / Unknown Venipuncture / Unknown 10/28/2024 12:52 PM EST 10/28/2024 12:52 PM EST us Shun AMBROSIO LAB BLOOD ORDERABLES Fi nal Result 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
--- NOTE | 2025-04-13 12:43 | P.CONAN_ITS ---
Documented by User: Carole Portillo NP 04/13/25 12:45 HPI - Anesthesia Eval Consult details Narrative: 40 yr old male for spinal cord stimulator s/p microdiscetomy 2023 [facility] Active Problems Active Problems: All Active Problems (Updated 07/21/24 @ 13:21 by Vadim Medina MD) Postlaminectomy syndrome (Acute) Previous back surgery (Acute) Recurrent herniation of lumbar disc (Acute) Lumbar radiculopathy (Acute) Past Medical History Medical History Low back pain Congenital abnormality ureter H/O heartburn Depression Numbness and tingling of left leg Asthma Family History Family history of problems with anesthesia: No Surgical History Surgical History Hx of decompressive lumbar laminectomy (~07/2022) History of pyeloplasty (~2021) History of Problems with Anesthesia: No Social History Social History Household Members: Other Household Members Other:: mother Housing: Apartment Are you a primary care transitions nurse to a significant other at home: No Do you presently have visiting nurse or other home services: No Patient Tobacco Use Status: Never used Tobacco Substance Use Type: Marijuana Have you been hit, kicked, punched, or otherwise hurt by someone within the past year? If so, by whom?: No Are you DNR?: No Advance Directives: No Advance Directives Information Provided: Yes Meds Allergies Allergy/AdvReac Type Severity Reaction Status Date / Time No Known Allergies Allergy Verified 06/29/24 11:43 Home Medications ?Medication ?Instructions ?Recorded ?Confirmed ?Last Taken ?Type alprazolam 0.5 mg tablet 0.5 mg PO Q4-6H PRN Anxiety 04/14/25 04/14/25 Unknown History Assessment and Plan Final Anesthetic Review Family History of Problems with Anesthesia: No History of Problems with Anesthesia: No Documented by User: Ayleen Branch MD 04/14/25 15:00 [facility] Past Medical History Medical History Low back pain Congenital abnormality ureter H/O heartburn Depression Numbness and tingling of left leg Asthma Surgical History Surgical History Hx of decompressive lumbar laminectomy (~07/2022) History of pyeloplasty (~2021) Social History Social History Household Members: Other Household Members Other:: mother Housing: Apartment Are you a primary care transitions nurse to a significant other at home: No Do you presently have visiting nurse or other home services: No Patient Tobacco Use Status: Never used Tobacco Substance Use Type: Marijuana Have you been hit, kicked, punched, or otherwise hurt by someone within the past year? If so, by whom?: No Are you DNR?: No Advance Directives: No Advance Directives Information Provided: Yes Meds Allergies Allergy/AdvReac Type Severity Reaction Status Date / Time No Known Allergies Allergy Verified 06/29/24 11:43 Home Medications ?Medication ?Instructions ?Recorded ?Confirmed ?Last Taken ?Type alprazolam 0.5 mg tablet 0.5 mg PO Q4-6H PRN Anxiety 04/14/25 04/14/25 Unknown History Exam Airway Mallampati Class: II TM Dist: >3cm Neck ROM: Full Heart: rrr Lungs: cta Assessment and Plan Assessment Anesthesia Assessment: Anesthesia Plan Discussed and Chart Reviewed Final Anesthetic Review NPO: Yes ASA Class: II Final Preanesthetic Review: No Changes in Pt Med Stat, Meds/Allgs Chart Reviewed and Consent Obtained/Reviewed Patient Risk: Low Procedure Risk: Intermediate Anesthetic Plan Anesthetic Plan: MAC: Disposition: Standard PACU
--- NOTE | ~2025-04-14 | FL_ITS ---
EXAMINATION: FL GUIDANCE ONLY HISTORY: SPINAL CORD STIM TRIAL COMPARISON: None available. TECHNIQUE: Fluoroscopy time: 2 minutes, 30 seconds. Cumulative Dose: 44.040 mGy. DAP: 4.8988 mGym2 Images: 3. FINDINGS: Fluoroscopic spot films of the thoracic spine demonstrate a spinal cord stimulator in place. FL/FL guidance in OR IMPRESSION: Fluoroscopy during procedure. Please see procedure report for additional information. Electronically signed by: Francisco Fay MD 04/15/2025 07:01 AM EDT
[2025-04-14 06:48] VITALS: BMI 29.3
[2025-04-14 11:45] VITALS: BP 112/76; PULSE 100; RESP 20; TEMP 36.6; O2SAT 96; BMI 28.6
[2025-04-14] MEDS: Lactated Ringers 1,000 ML 100 ML IVCONT (12:00)
--- NOTE | 2025-04-14 12:19 | MHC.SHP ---
Pre-Procedural Eval Section A - 24 Hr Update-Section A only Date of Service: 04/14/25 The patient is an INPATIENT: No Changes since office visit: Yes Cold of Flu in the past 2 weeks The patient has been examined within 24 hours of the surgical procedure. The History & Physical has been completed within 30 days and I have reviewed it.: No Section B - Complete if H&P > 30 days Chief Complaint: Postlaminectomy syndrome,Radiculopathy, lumbar Relevant Family History (Specify if Yes): No Relevant Social History: None Present Medications: see Short Stay Collaborative assessment Medical History: No relevant PMH History of Previous Operations: No relevant previous surgery Allergies: Allergies Allergy/AdvReac Type Severity Reaction Status Date / Time No Known Allergies Allergy Verified 06/29/24 11:43 Review of Systems Sugical H&P ROS: Negative: Constitution, Cardiovascular and Respiratory Exam Surgical H&P Exam: Normal: HEENT, Normal: Heart and Normal: Lungs Plan Diagnosis/Plan: Unchanged I have reviewed the history and physical and performed a pertinent physical examination on my patient. No changes have occurred unless specified. Time Spent With Patient Time: Total time managing care of this patient today ____ minutes.
[2025-04-14 13:15] LABS: MRSA Nasal PCR NEGATIVE (Negative); SA Nasal PCR NEGATIVE (Negative)
[2025-04-14 15:58] VITALS: BP 120/73; PULSE 84; RESP 16; TEMP 36.4; O2SAT 98
--- NOTE | 2025-04-14 15:58 | PM.OP ---
Brief Operative Note Date of Service: 04/14/25 Pre-op diagnosis: Post-laminectomy Syndrome Post-op diagnosis: same Procedure: Lumbar Spinal Cord Stimulation Trial Implants: [employer] 16 contact leads Surgeon: Vadim Medina MD Anesthesia: MAC Was an Lead Security Officer used for this Procedure?: No Estimated blood loss (mL): 1 Pathology: none sent Condition: stable Disposition: PACU
--- NOTE | 2025-04-14 15:59 | W.PM.OPN ---
Operative Note Operative Note Date of Service: 04/14/25 Narrative: Preoperative Diagnosis: Postlaminectomy syndrome Postoperative diagnosis: Same Percutaneous Spinal Cord Stimulator Trial, Lumbar After obtaining written consent, pre-procedure blood pressure and heart rate were recorded and are in the nursing record for review. A peripheral IV was started. Antibiotics, cefazolin 2 gram, were given intraoperatively. The patient was placed in a prone position.? The patient was sedated by the anesthesiologist. The thoracolumbar area was widely prepped with ChloraPrep, allowed to dry and draped in sterile fashion. Fluoroscopy was used to identify the target interlaminar spaces and appropriate needle insertion sites. The skin and subcutaneous tissue was anesthetized with 0.5% lidocaine. Two separate 14 gauge Tuohy epidural needles were then advanced from this point in a paramedian approach to the epidural space opening at T12/L1 interspace, where loss of resistance was found using air. No paresthesias were elicited with needle placement. No CSF or heme was present upon needle placement. A guide wire was then used to confirm placement into the epidural space at each level under live fluoroscopy. The 1x16 stimulator lead wire was then threaded to the top of T7 in the right and left parasagittal positions under live fluoroscopy. The leads advanced midline.? The Tuohy needles were then completely removed under live fluoroscopy. The stimulator wires were then secured with 2-0 silk sutures securing the anchors, sterile strips and gauze and tegaderm for skin dressing. The patient tolerated the procedure well and no complications were encountered. Following the procedure the patient's vital signs were stable. The patient was discharged home in good condition after being given discharge instructions. Time Out: Immediately prior to the procedure, the following was verbally confirmed that there is a signed consent form and that the correct patient, planned procedure, site and side are consistent with documentation and that necessary equipment and/or blood products are available prior to the start of the case. Complications: none EBL: <2 cc
[2025-04-14 16:13] VITALS: BP 117/78; PULSE 75; RESP 16; O2SAT 96
[2025-04-14 16:28] VITALS: BP 111/67; PULSE 69; RESP 20; TEMP 36.4; O2SAT 97
== END 2025-04-14 16:50 | disposition home or self-care (01) ==
PROVIDERS: Registered Nurse Emergency; Visit Provider Internal Medicine
PROC: (CPT 63650; principal; 2025-04-14 13:10)
DX: M96.1 Postlaminectomy syndrome, not elsewhere classified (principal); M54.16 Radiculopathy, lumbar region; Z98.890 Other specified postprocedural states; M79.605 Pain in left leg; R20.0 Anesthesia of skin; R20.2 Paresthesia of skin; M54.50 Low back pain, unspecified; J45.909 Unspecified asthma, uncomplicated; F32.A Depression, unspecified; Z79.899 Other long term (current) drug therapy
CPT/HCPCS: 63650 ×2; 87640; 87641; C1897; J0690; J1885; J2003; J2250; J2704; J3010

== ENCOUNTER → 2025-04-14 11:41 | Outpatient (BNV) | payer OTHER, SELFPAY | PROVIDERS: Visit Provider Internal Medicine | DX: M96.1 Postlaminectomy syndrome, not elsewhere classified (principal) | CPT/HCPCS: 63650 ==

== ENCOUNTER 2025-04-23 11:02 | Outpatient (AMB) | payer OTHER, SELFPAY ==
--- NOTE | 2025-04-23 11:06 | MHC.OFFVIS ---
Vital Signs 04/23/25 11:07 Weight 199 lb BP 117/73 Blood Pressure Location Lt brachial Position Sitting Respiration 16 Pulse 87 Pulse Source Pulse Oximeter Pulse Oximetry (%) 98 Oxygen Delivery Method Room Air Intake Visit Reasons: S/p [employer] SCS Trial Director Of Student Life Required: No Allergies No Known Allergies Allergy (Verified 04/23/25 11:06) HPI HPI S/p [employer] SCS Trial: Details: History of Present Illness The patient is a 40-year-old male presenting with chronic pain management. He reports a >50% reduction in pain with spinal cord stimulation, which also improved his sleep quality. The patient is interested in a spinal cord stimulator implant for enhanced pain relief. Pain Description - Pain reduction: 50% improvement with spinal cord stimulation - Sleep interference: Pain affects sleep, but stimulation improves sleep quality Physical Exam - Back: Examination conducted, site c/d/i. Leads removed intact. Pain Management - Analgesia: 50% pain relief with spinal cord stimulation - Activities of Daily Living: Improved sleep quality with stimulation FOR[facility]LY [facility], [facility] Medical History Low back pain Congenital abnormality ureter H/O heartburn Depression Numbness and tingling of left leg Asthma Surgical History Hx of decompressive lumbar laminectomy (~07/2022) History of pyeloplasty (~2021) Social History Household Members: Other Household Members Other:: mother Housing: Apartment Are you a primary home health care case manager to a significant other at home: No Do you presently have visiting nurse or other home services: No Patient Tobacco Use Status: Never used Tobacco Substance Use Type: Marijuana Physical Exam Vital Signs: Last Vital Signs Pulse 87 04/23/25 11:07 Resp 16 04/23/25 11:07 BP 117/73 04/23/25 11:07 Pulse Ox 98 04/23/25 11:07 Oxygen Delivery Method Room Air 04/23/25 11:07 Assessment & Plan Assessment & Plan (1) Postlaminectomy syndrome: Code(s): M96.1 - Postlaminectomy syndrome, not elsewhere classified Category: Medical Plan Plan - Proceed with lumbar spinal cord stimulator implant with leads at T7/8 for enhanced pain management. - Monitor for potential earlier availability for the procedure if cancellations occur. Patient was informed and verbally consented to the use of an ambient scribe for clinic note documentation during this visit. Discussion Notes I discussed with the patient the option of proceeding with a spinal cord stimulator implant for improved pain management. We also talked about the possibility of an earlier procedure date if there are cancellations. Patient Instructions - Wait for notification regarding the scheduling of the spinal cord stimulator implant. - Be prepared for a potential earlier procedure date if cancellations occur. Coding Level of Care Code Est Pt Level 3 (45661) Diagnoses Postlaminectomy syndrome M96.1
[2025-04-23 11:07] VITALS: BP 117/73; PULSE 87; RESP 16; O2SAT 98
--- OUTSIDE RECORDS SUMMARY | 2025-04-23 11:09 | XMS_ITS | Clinical Summary ---
Author Organization [place] [address] [facility] Building Address [address] [place] [address] Phone Care Team Providers Care Tank Erector Name Role Phone NegritoEryn chaney Primary Care Provider [phone] Allergies Active Allergy Reactions Criticality Noted Date [...] mouth at bedtime. 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, Dr Simeon OTHER SURGICAL HISTORY 08/01/2022 PROCEDURE: [place] LAMNOTMY INCL W/DCMPRSN NRV ROOT 1 INTRSPC [...] AM EDT Office Visit Internal Medicine - [facility] [address] [place] [address] Shun Tavera PA [address] [place] [address] Health Maintenance Due Date Last Done Comments Hepatitis B Vaccines (1 of 3 - 19+ 3-dose series) 01/28/2004 Pneumococcal Vaccine: Pediatrics (0 to 5 Years) and At-Risk Patients (6 to 49 Years) (1 of 2 - PCV) 01/28/2004 HIV Screening 09/02/2022 Hepatitis C Screening 09/02/2022 Social Influencers of Health Screening 09/02/2022 COVID-19 Vaccine (3 - 2023-2 5 season) 2024 03/07/2021, 02/14/2021 Depression Screening 09/23/2024 Influenza Vaccine (#1) 2025 Cholesterol Screening (Lipid [...] LAB CHEMISTRY METHOD 10/28/2024 7:40 PM EST [facility] Triglycerides 106 0 - 150 mg/dL LAB CHEMISTRY METHOD 10/28/2024 7:40 PM EST [facility] HDL 49 >=40 mg/dL LAB CHEMISTRY METHOD 10/28/2024 7:40 PM EST [facility] LDL Calculated 83 0 - 100 mg/dL LAB CHEMISTRY METHOD 10/28/2024 7:40 PM [facility] VLDL Cholesterol Bg 21.2 mg/dL LAB CHEMISTRY METHOD 10/28/2024 7:40 PM EST [facility] Non HDL Chol. (LDL+VLDL) 104 <145 mg/dL LAB CHEMISTRY METHOD 10/28/2024 7:40 PM EST [facility] Chol/HDL Ratio 3.1 0.0 - 4.4 LAB CHEMISTRY METHOD 10/28/2024 7:40 PM EST [facility] Blood Venous blood specimen / Unknown Venipuncture / Unknown 10/28/2024 12:52 PM EST 10/28/2024 12:52 PM EST us Shun [facility]BR[facility] LAB BLOOD ORDERABLES Fi nal Result [facility] [address] [place] [address], from Last 3 Months or Most Recently Relevant to Health Maintenance Insurance [facility] [employer] Advance Directives Documents on File Type Date Recorded Patient Project Estimator Expl anation Health Care Decision (hx) 11/03/2021 AD ETIENNE DIRECTIVE Health Care Decision (hx) 11/03/2021 AD ETIENNE DIRECTIVE Health Care Decision (hx) 11/03/2021 AD ETIENNE DIRECTIVE Health Care Decision (hx) 11/03/2021 AD ETIENNE DIRECTIVE Health Care Decision (hx) 11/03/2021 AD ETIENNE DIRECTIVE Health Care Decision (hx) 11/03/2021 AD ETIENNE DIRECTIVE Health Care Decision (hx) 11/03/2021 AD LOWELL DIRECTIVE Care Teams Tank Erector Relationship Specialty Start Date End Date Eryn Draper DO [address] [place] [address] [place] [address] PCP - General Internal Medicine 08/03/24
--- OUTSIDE RECORDS SUMMARY | 2025-04-23 11:09 | XMS_ITS ---
Author Name [facility] Organization Unknown Care Team Organization Name Specialty Phone Email Start Date End Da te [facility] Keith Desir Primary [facility] 07/31/20222023
== END 2025-04-23 11:33 | disposition home or self-care (01) ==
LOC: HO.PMC 11:03
PROVIDERS: PCP Family Medicine; Visit Provider Internal Medicine
DX: M96.1 Postlaminectomy syndrome, not elsewhere classified (principal)
CPT/HCPCS: 99024

== ENCOUNTER → 2025-04-23 11:02 | Outpatient (BNVA) | payer OTHER, SELFPAY | PROVIDERS: PCP Family Medicine; Visit Provider Internal Medicine | DX: M96.1 Postlaminectomy syndrome, not elsewhere classified (principal) | CPT/HCPCS: 99212 ==

== ENCOUNTER 2025-06-23 11:53 | Day surgery (SDC) | payer OTHER, SELFPAY ==
--- OUTSIDE RECORDS SUMMARY | 2025-06-10 14:27 | XMS_ITS | Clinical Summary ---
Author Organization [address] [facility] Address [address] [place] [address] Phone Care Team Providers Care Strategy Consultant Name Role Phone Sharri Tierney MD Primary Care Provider [phone] Allergies Active Allergy Reactions Criticality Noted Date [...] tongue at bedtime as needed for anxiety. Active methocarbamoL (ROBAXIN) 500 mg tablet Take 1 tablet (500 mg total) by mouth 4 (four) times a day if needed for muscle spasms. 120 tablet 1 5 07/26/20 25 Active celecoxib (CeleBREX) 200 mg capsule Take 1 capsule (200 mg total) by mouth 2 (two) times a day. 180 each 5 07/26/20 25 Active omeprazole (PriLOSEC) [address] capsule Take 1 capsule (20 mg total) by mouth 1 (one) time each day. Do not crush or chew. 90 each 1 5 10/24/19 26 Active Active Problems Problem Noted Date Diagnosed [...] Encounters Date Type Department Care Team Description 04/27/2025 11:00 AM EDT Office Visit Internal Medicine - [facility] [address] [place] [address] Shun Tavera PA Chronic bilateral low back pain without sciatica (Primary Dx); Depression, unspecified depression type from Last 3 Months Immunizations Name Administration Dates Next Due Tdap Tetanus diptheria acell ular pertussis (Boostrix; Adacel) 7yo and older 02/27/2022 Surgical History Surgery Date Site/Laterality Comments OTHER SURGICAL HISTORY Left PROCEDURE: [place] PYELOPLASTY COMPLICATED; 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, Dr Simeon OTHER SURGICAL HISTORY 08/01/2022 PROCEDURE: [place] LAMNOTMY INCL W/DCMPRSN NRV ROOT 1 INTRSPC [...] Sign Reading Time Taken Comments Blood Pressure 120/84 04/27/2025 11:05 AM EDT Pulse 78 04/27/2025 11:05 AM EDT Temperature 36.6 C (97.9 F) 09/18/2024 1:26 PM EST Respiratory Rate 16 04/27/2025 11:05 AM EDT Oxygen Saturation 98% 09/18/2024 1:26 PM EST Inhaled Oxygen Concentration - - Weight 91.2 kg (201 lb) 04/27/2025 11:05 AM EDT Height 177.8 cm (5' 10 ) 09/18/2024 1:26 PM EST Body Mass Index 28.84 09/18/2024 1:26 PM EST Plan of Treatment Upcoming Encounters Date Type Department Care Team (Late st Contact Info) Description 11/01/2025 12:00 PM EST Office Visit Internal Medicine - [facility] [address] [place] [address] Shun Tavera PA [address] [place] [address] Health Maintenance Due Date Last Done Comments Hepatitis B Vaccines (1 of 3 - 19+ 3-dose series) 01/28/2004 Pneumococcal Vaccine: Pediatrics (0 to 5 Years) and At-Risk Patients (6 to 49 Years) (1 of 2 - PCV) 01/28/2004 HIV Screening 09/02/2022 Hepatitis C Screening 09/02/2022 Social Influencers of Health Screening 09/02/2022 Depression Screening 09/23/2024 COVID-19 Vaccine (3 - 2024-2 6 season) 2025 03/07/2021, 02/14/2021 Influenza Vaccine (#1) 2025 Cholesterol [...] LAB CHEMISTRY METHOD 10/28/2024 7:40 PM EST [facility] Triglycerides 106 0 - 150 mg/dL LAB CHEMISTRY METHOD 10/28/2024 7:40 PM EST [facility] HDL 49 >=40 mg/dL LAB CHEMISTRY METHOD 10/28/2024 7:40 PM EST [facility] LDL Calculated 83 0 - 100 mg/dL LAB CHEMISTRY METHOD 10/28/2024 7:40 PM EST [facility] VLDL Cholesterol Bg 21.2 mg/dL LAB CHEMISTRY METHOD 10/28/2024 7:40 PM EST [facility] Non HDL Chol. (LDL+VLDL) 104 <145 mg/dL LAB CHEMISTRY METHOD 10/28/2024 7:40 PM EST [facility] Chol/HDL Ratio 3.1 0.0 - 4.4 LAB CHEMISTRY METHOD 10/28/2024 7:40 PM EST [facility] Blood Venous blood specimen / Unknown Venipuncture / Unknown 10/28/2024 12:52 PM EST 10/28/2024 12:52 PM EST Shun [facility] LAB BLOOD ORDERABLES Fi nal Result [facility] [address] [place] [address], from Last 3 Months or Most Recently Relevant to Health Maintenance Insurance [facility] [employer] Advance Directives Documents on File Type Date Recorded 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 Health Care Decision (hx) 11/03/2021 AD ETIENNE DIRECTIVE Health Care Decision (hx) 11/03/2021 AD ETIENNE DIRECTIVE Health Care Decision (hx) 11/03/2021 AD ETIENNE DIRECTIVE Health Care Decision (hx) 11/03/2021 AD ETIENNE DIRECTIVE Health Care Decision (hx) 11/03/2021 AD ETIENNE DIRECTIVE Health Care Decision (hx) 11/03/2021 AD ETIENNE DIRECTIVE Health Care Decision (hx) 11/03/2021 AD LOWELL DIRECTIVE Care Teams Strategy Consultant Relationship Specialty Start Date End Date Sharri Tierney MD [address] [facility] [place] [id number] PCP - General Internal Medicine 05/06/25
[2025-06-21 08:22] VITALS: BMI 28.6
[2025-06-23] VITALS (7 sets, daily range): BP systolic 108–135; BP diastolic 61–87; PULSE 75–84; RESP 12–18; TEMP 36.1–36.9; O2SAT 96–99; BMI 28.3
--- NOTE | ~2025-06-23 | FL_ITS ---
EXAMINATION: FL GUIDANCE ONLY HISTORY: SPINAL CORD STIM IMPLANT COMPARISON: None available. TECHNIQUE: Fluoroscopy time: 2 minutes, 25.1 seconds. Cumulative Dose: 48.961 mGy. DAP: 7.6053 Gycm2 Images: 5. FINDINGS: Fluoroscopic spot films of the thoracic spine demonstrate a stimulator in place with the tip of the lead at the T7 level. FL/FL guidance in OR IMPRESSION: Fluoroscopy during procedure. Please see procedure report for additional information. Electronically signed by: Francisco Fay MD 06/23/2025 02:49 PM EDT
--- NOTE | 2025-06-23 12:14 | P.CONAN_ITS ---
Documented by User: Liudmila Vicente NP 06/21/25 14:13 HPI - Anesthesia Eval Consult details Narrative: 40yo M for Spinal Cord Stimulation Implant PMFSH Active Problems Active Problems: All Active Problems Postlaminectomy syndrome (Acute) Previous back surgery (Acute) Recurrent herniation of lumbar disc (Acute) Lumbar radiculopathy (Acute) Past Medical History Medical History Low back pain Congenital abnormality ureter H/O heartburn Depression Numbness and tingling of left leg Asthma Family History Family history of problems with anesthesia: No Surgical History Surgical History Hx of decompressive lumbar laminectomy (~07/2022) History of pyeloplasty (~2021) History of Problems with Anesthesia: No Social History Social History Household Members: Other Household Members Other:: mother Housing: Apartment Are you a primary residential care facility manager to a significant other at home: No Do you presently have visiting nurse or other home services: No Patient Tobacco Use Status: Never used Tobacco Substance Use Type: Marijuana Advance Directives: No Advance Directives Information Provided: Yes Meds Allergies Allergy/AdvReac Type Severity Reaction Status Date / Time No Known Allergies Allergy Verified 06/23/25 12:15 Home Medications ?Medication ?Instructions ?Recorded ?Confirmed ?Last Taken ?Type alprazolam 0.5 mg tablet 0.5 mg PO Q4-6H PRN Anxiety 04/14/25 04/14/25 Unknown History Exam Height,Weight and Vital Signs: Height 5 ft 10 in Weight 90.265 kg Assessment and Plan Assessment Anesthesia Assessment: Chart Reviewed Final Anesthetic Review Family History of Problems with Anesthesia: No History of Problems with Anesthesia: No Documented by User: Denise Márquez DO 06/23/25 12:15 PMFSH Past Medical History Medical History Low back pain Congenital abnormality ureter H/O heartburn Depression Numbness and tingling of left leg Asthma Family History Family history of problems with anesthesia: No Surgical History Surgical History Hx of decompressive lumbar laminectomy (~07/2022) History of pyeloplasty (~2021) History of Problems with Anesthesia: No Social History Social History Household Members: Other Household Members Other:: mother Housing: Apartment Are you a primary residential care facility manager to a significant other at home: No Do you presently have visiting nurse or other home services: No Patient Tobacco Use Status: Never used Tobacco Substance Use Type: Marijuana Advance Directives: No Advance Directives Information Provided: Yes Meds Allergies Allergy/AdvReac Type Severity Reaction Status Date / Time No Known Allergies Allergy Verified 06/23/25 12:15 Home Medications ?Medication ?Instructions ?Recorded ?Confirmed ?Last Taken ?Type alprazolam 0.5 mg tablet 0.5 mg PO Q4-6H PRN Anxiety 04/14/25 04/14/25 Unknown History Exam Exam Date and Time: 06/23/25 1213 Air[address] Mallampati Class: II TM Dist: >3cm Neck ROM: Full Loose/Missing/Broken Teeth: No (patient denies any loose or broken teeth) Heart: S1S2 Lungs: CTAB Assessment and Plan Assessment Anesthesia Assessment: Anesthesia Plan Discussed and Chart Reviewed Final Anesthetic Review Family History of Problems with Anesthesia: No History of Problems with Anesthesia: No NPO: Yes ASA Class: II Final Preanesthetic Review: No Changes in Pt Med Stat, Meds/Allgs Chart Reviewed, Consent Obtained/Reviewed and Anes Risks/Benef Reviewed Patient Risk: Low Procedure Risk: Low Anesthetic Plan Anesthetic Plan: GA and Agree w/ Assess. and Plan Disposition: Standard PACU
[2025-06-23] MEDS: Lactated Ringers 1,000 ML 100 ML IVCONT (12:18)
--- NOTE | 2025-06-23 12:36 | MHC.SHP ---
Pre-Procedural Eval Section A - 24 Hr Update-Section A only Date of Service: 06/23/25 The patient is an INPATIENT: No Changes since office visit: Yes Patient answered all questions The patient has been examined within 24 hours of the surgical procedure. The History & Physical has been completed within 30 days and I have reviewed it.: No Section B - Complete if H&P > 30 days Chief Complaint: Postlaminectomy syndrome, not elsewhere classified Relevant Family History (Specify if Yes): No Relevant Social History: None Present Medications: see Short Stay Collaborative assessment Medical History: No relevant PMH History of Previous Operations: Relevant previous surgery/procedure and date(s) Allergies: Allergies Allergy/AdvReac Type Severity Reaction Status Date / Time No Known Allergies Allergy Verified 06/23/25 12:15 Review of Systems Sugical H&P ROS: Negative: Constitution, Cardiovascular and Respiratory Exam Surgical H&P Exam: Normal: HEENT, Normal: Heart and Normal: Lungs Plan Diagnosis/Plan: Unchanged I have reviewed the history and physical and performed a pertinent physical examination on my patient. No changes have occurred unless specified. Time Spent With Patient Time: Total time managing care of this patient today ____ minutes.
[2025-06-23 13:57] LABS: MRSA Nasal PCR NEGATIVE (Negative); SA Nasal PCR NEGATIVE (Negative)
--- NOTE | 2025-06-23 15:49 | PM.OP ---
Brief Operative Note Date of Service: 06/23/25 Pre-op diagnosis: Post-laminectomy syndrome Post-op diagnosis: same Procedure: Lumbar spinal cord stimulation implant Implants: [employer]! Alpha WaveWriter IPG with 8 contact electrodes Surgeon: Vadim Medina MD Anesthesia: GETA Was an Flavor Room Worker used for this Procedure?: No Estimated blood loss (mL): 20 Pathology: none sent Condition: stable Disposition: PACU
--- NOTE | 2025-06-24 13:50 | W.PM.OPN ---
Operative Note Operative Note Date of Service: 06/23/25 Narrative: Pre-procedure diagnosis: Post-laminectomy syndrome Postprocedure diagnosis: Same Lumbar SCS Implant After proper identification, the patient was brought to the operating room. After prone positioning, general anesthesia was induced and the patient was flipped prone. Care was taken during positioning to protect and pad all pressure points. Cefazolin 2gm was given as preoperative antibiotic prophylaxis. The back was prepped and draped in the usual sterile fashion using Chloroprep. The fluoroscope unit was sterilely draped and brought into field, the vertebral target and the T12/L1 interspace was localized with fluoroscopy. A 6 cm incision was then made in the midline back with a 15 blade between the L1 and L2 spinous processes. Electrocautery was used to dissect down to the prevertebral fascia. Two 14-gauge introducer Tuohy needles were advanced using AP and contralateral oblique fluoroscopy views to the target interspace on either side of the inferior spinous process. Upon loss of resistance, a flexible stylet was advanced and verified to be in the epidural space.?The electrodes were then threaded to the mid T7 position. The electrodes advanced midline and dorsally as confirmed on AP and lateral fluoroscopy. With the needles covering the leads, we placed 2 sets of Tycron sutures per electrode for the anchor stitches. We then backed out the needle under live fluoroscopy, verifying that the electrodes were in the correct position and we then used the locking anchors to secure the electrodes down to the prevertebral fascia, tying them down with the Tycron sutures. At this point, a pocket for the generator was made in the left lumbar region. A horizontal 2-inch incision was made using a 15 blade and combination of sharp dissection, blunt dissection and electrocautery was used. A pocket was created about half an inch below the skin. The pocket was then irrigated with normal saline containing vancomycin. Hemostasis was attained with electrocautery. We then tunneled the electrodes from the back into the pocket using the tunneling device. The electrodes were then connected to the generator. A single Tycron suture was thrown across the floor of the pocket and through the medial anchor hold of the generator. After interrogation with impedance check the generator was placed into the subcutaneous pocket and the anchoring suture tied. Care was taken not to get fluid in the generator connector block. The excess lead was closed beneath the generator creating a loop of strain relief as well. The neurostimulator generator was placed parallel to the skin at a depth of half an inch along for successful telemetry and impedence. The pocket was reirrigated and closed with the generator name facing out. Final electronic analysis was performed to ensure proper functioning. Positioning of the leads were rechecked and confirmed with fluoroscopy and images saved. The midline incision was closed with a deep layer of 2-0 Vicryl sutures, the deep dermal layer with 3-0 Vicryl sutures and a running 4-0 Monocryl for the subcutaneous layer. The pocket incision was closed with 2-0 Vicryl for the fascial layer and 3-0 Vicryl for the deep dermal layer. We then secured the incision with Dermabond, steristrips and OpSites over both incisions. The patient tolerated the procedure well. The patient was then flipped back into the supine position, woken up and brought to the PACU in stable condition. Complications: None EBL: 20 mL
== END 2025-06-23 15:58 | disposition home or self-care (01) ==
PROVIDERS: Registered Nurse Emergency; Visit Provider Internal Medicine
PROC: (CPT 63685; principal; 2025-06-23 12:40)
DX: M96.1 Postlaminectomy syndrome, not elsewhere classified (principal); G89.29 Other chronic pain; M54.16 Radiculopathy, lumbar region; M54.50 Low back pain, unspecified; R20.0 Anesthesia of skin; R20.2 Paresthesia of skin; J45.909 Unspecified asthma, uncomplicated; F32.A Depression, unspecified; Z79.899 Other long term (current) drug therapy; Z98.890 Other specified postprocedural states
CPT/HCPCS: 63685; 63650 ×2; 87640; 87641; C1778; C1787; C1820; C1889; J0131; J0690; J1100; J1885; J2003; J2250; J2405; J2704; J3010; J3374

== ENCOUNTER → 2025-06-23 11:53 | Outpatient (BNV) | payer OTHER, SELFPAY | PROVIDERS: Visit Provider Internal Medicine | DX: M96.1 Postlaminectomy syndrome, not elsewhere classified (principal) | CPT/HCPCS: 63650; 63685 ==

== ENCOUNTER 2025-06-30 10:30 | Outpatient (AMB) | payer OTHER, SELFPAY ==
--- NOTE | 2025-06-30 10:33 | MHC.OFFVIS ---
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 Postoperatively, the patient experiences pain at the incision site, which is expected to improve over the next 4 to 6 weeks. His chronic back pain has improved since the surgery, and he reports significant relief from the spinal cord stimulator trial. The patient has not been using the stimulator consistently but began using it recently, noting improvement in his condition. Pain Description - Postoperative pain at the incision site, affecting sleep - Chronic back pain improved post-surgery - Spinal cord stimulator trial provided approximately 50% relief Physical Exam - Musculoskeletal: Incision sites are clean, dry, and intact with no tenderness Results Pain Management - Affect: Pain impacts sleep quality - Analgesia: Spinal cord stimulator trial provided 50% relief; postoperative pain expected to improve - Activities of Daily Living: Pain affects sleep, but chronic back pain has improved [facility] Medical History History of stent insertion of renal artery Low back pain Congenital abnormality ureter H/O heartburn Depression Numbness and tingling of left leg Asthma Surgical History Hx of decompressive lumbar laminectomy (~07/2022) History of pyeloplasty (~2021) Social History Household Members: Other Household Members Other:: mother Housing: Apartment Are you a primary foster care social worker to a significant other at home: No Do you presently have visiting nurse or other home services: No Patient Tobacco Use Status: Never used Tobacco Substance Use Type: Marijuana Physical Exam Vital Signs: Last Vital Signs Pulse 75 06/30/25 10:34 Resp 16 06/30/25 10:34 BP 110/76 06/30/25 10:34 Pulse Ox 96 06/30/25 10:34 Oxygen Delivery Method Room Air 06/30/25 10:34 BMI result Body Mass Index 28.7 Assessment & Plan Assessment & Plan (1) Postlaminectomy syndrome: Code(s): M96.1 - Postlaminectomy syndrome, not elsewhere classified Category: Medical Plan Plan Patient was informed and verbally consented to the use of an ambient scribe for clinic note documentation during this visit. 1. Postoperative Pain Following Spinal Cord Stimulator Surgery - Continue monitoring pain levels and incision site healing - Follow-up visit scheduled for dressing removal and further evaluation 2. Chronic Back Pain - Continue using spinal cord stimulator as needed for pain relief - Evaluate effectiveness of stimulator in subsequent visits Discussion Notes I discussed with the patient the expected postoperative course, including the improvement of pain over the next 4 to 6 weeks. We reviewed the effectiveness of the spinal cord stimulator, noting the 50% relief achieved during the trial and the importance of consistent use. The patient was advised to follow up next week for dressing removal and further evaluation. Patient Instructions - Monitor pain levels and incision site for any changes - Use the spinal cord stimulator as needed for pain relief - Return next week for dressing removal and further evaluation Coding Level of Care Code Est Pt Level 3 (68455) Diagnoses Postlaminectomy syndrome M96.1
[2025-06-30 10:34] VITALS: BP 110/76; PULSE 75; RESP 16; O2SAT 96; BMI 28.7
== END 2025-06-30 11:08 | disposition home or self-care (01) ==
LOC: HO.PMC 10:31
PROVIDERS: PCP Family Medicine; Visit Provider Internal Medicine
DX: M96.1 Postlaminectomy syndrome, not elsewhere classified (principal)
CPT/HCPCS: 99024

== ENCOUNTER → 2025-06-30 10:30 | Outpatient (BNVA) | payer OTHER, SELFPAY | PROVIDERS: PCP Family Medicine; Visit Provider Internal Medicine | DX: M96.1 Postlaminectomy syndrome, not elsewhere classified (principal) | CPT/HCPCS: 99212 ==

== ENCOUNTER 2025-07-08 10:08 | Outpatient (AMB) | payer OTHER, SELFPAY ==
--- NOTE | 2025-07-08 10:19 | MHC.OFFVIS ---
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 The patient reports experiencing significant postoperative pain, which is not typical of his usual chronic back pain. He describes the pain as affecting his sleep, causing discomfort when lying on either side, and resulting in sweating episodes. The patient considered visiting the emergency department due to the severity of the pain but managed to alleviate it by stretching and walking. The patient has a history of chronic back pain, having undergone at least three previous back surgeries. He has not been taking any pain medications such as Tylenol or ibuprofen, as he finds them ineffective. Patient reports his pain was better controlled with oxycodone-acetaminophen during the first week after SCS implant. Denies any recent cough, cold, infection, fever or any other significant changes in medical history since last office visit. The wound dressings were removed and the wounds cleansed with ChloraPrep. Incisional sites are clean, dry, intact. No pathological discharge, redness, swelling, erythema or tenderness. Steri-strips and skin glue are intact both wounds. Bacitracin ointment was applied to both wounds. Tegaderm dressing was applied. Patient is wearing abdominal binder. Lisandro Hicks was present during today's visit for patient's education, follow up and device program adjustments. PRIOR Dr. Medina: 39-year-old male who presents today to the office for lumbar radiculopathy. The patient had L5-S1 microdiskectomy in August 2022 but never had a full recovery. He still experiencing a lot of pain radiating from the buttock down to his leg. He reports that he has had persistent numbness and tingling in his left leg, 3rd?5th phalanges. He also endorses continued bottom of the foot pain and posterior thigh pain. The pain prevents him from working. His sleep is disturbed due to radiating pain down his left leg. He underwent recurrent left L5-S1 lumbar microdiscectomy on 10/24/23 and felt better post procedure. He still reports mild shooting pain down his posterior calf and some nonspecific tingling that remains in the bottom of his left foot. At night he has severe back pain and constantly has to switch around to relieve the back and leg pain. He reports that standing and bending exacerbate his pain, and that laying down alleviates his pain. He has continued to try OTC pain medications and stretching/walking to help alleviate his symptoms, to no avail. [facility] Medical History History of stent insertion of renal artery Low back pain Congenital abnormality ureter H/O heartburn Depression Numbness and tingling of left leg Asthma Surgical History Hx of decompressive lumbar laminectomy (~07/2022) History of pyeloplasty (~2021) Social History Household Members: Other Household Members Other:: mother Housing: Apartment Are you a primary daycare director to a significant other at home: No Do you presently have visiting nurse or other home services: No Patient Tobacco Use Status: Never used Tobacco Substance Use Type: Marijuana Review of Systems Const All systems reviewed & are unremarkable except as noted in HPI and below Physical Exam Vital Signs: Last Vital Signs Pulse 104 H 07/08/25 10:23 BP 136/90 H 07/08/25 10:23 Pulse Ox 98 07/08/25 10:23 Oxygen Delivery Method Room Air 07/08/25 10:23 BMI result Body Mass Index 28.0 General: Appears afebrile. Alert and oriented. Mood and affect appropriate. Follows and participates in conversation appropriately. Respiratory effort is unlabored. Able to transition from sit to stand unassisted. Ambulates with bilaterally normal heel strike and toe off. Dressings were changed in clinic today. Patient is wearing abdominal binder. Surgical sites are clean, dermabond skin glue and steri-strips intact, no signs of infection. Results Reviewed Results Reviewed: 05/11/24: MR LUMBAR SPINE WITHOUT AND WITH CONTRAST FINDINGS: There are 5 nonrib-bearing lumbar-type vertebral bodies. Lumbar alignment is maintained. The vertebral body heights are preserved. There is moderate disc volume loss at L5-S1 and there is mild disc volume loss at L4-L5 with disc desiccation at both levels. There are Modic type I and limited to endplate signal changes at L5-S1 there are Modic degenerative endplate signal changes at L4-L5. There is a new partially imaged 1.6 cm region of enhancement within the upper T11 vertebral body, most likely enhancement related to an upper endplate Schmorl's node in this location that can be followed with a dedicated thoracic spine MRI or thoracic spine CT. There is no pathologic enhancement along the cauda equina nerve roots. The imaged lower thoracic spinal cord is unremarkable and the conus terminates at the T12-L1 level. Extrarenal pelvis on the left. Left-sided IVC. L1-L2: Posterior disc contour is normal. There is no central canal stenosis and there is no foraminal stenosis. L2-L3: Posterior disc contour is normal. There is mild bilateral facet arthropathy. There is no central canal stenosis and there is no foraminal stenosis. Findings unchanged. L3-L4: There is a diffuse annular disc bulge with a superimposed shallow central disc protrusion and there is mild bilateral facet arthropathy. There is no central canal stenosis and there is no foraminal stenosis. Findings are unchanged. L4-L5: Diffuse annular disc bulge with a superimposed shallow central disc protrusion and mild bilateral facet arthropathy. There is no central canal stenosis. There is mild foraminal encroachment bilaterally. L5-S1: There are redemonstrated postoperative changes following left hemilaminectomy and microdiscectomy. There is enhancing granulation/scar tissue within the left epidural space that partially encases the traversing left S1 nerve root. The previously seen left paracentral disc protrusion is decreased in size resulting in decreased now mild mass effect on the traversing left S1 nerve root. Osteophytic ridging and facet arthropathy result in mild bilateral foraminal encroachment. IMPRESSION: * At L5-S1, there are redemonstrated postoperative changes following left hemilaminectomy and microdiscectomy. There is enhancing granulation/scar tissue within the left epidural space that partially encases the traversing left S1 nerve root. Decrease in size of the previously seen left paracentral disc protrusion at this level then now results in slight posterior deflection of the traversing left S1 nerve root within the left subarticular zone without residual extrinsic compression. Assessment & Plan Assessment & Plan (1) Lumbar radiculopathy: Code(s): M54.16 - Radiculopathy, lumbar region Category: Medical (2) Previous back surgery: Code(s): Z98.890 - Other specified postprocedural states Category: Surgical (3) Postlaminectomy syndrome: Code(s): M96.1 - Postlaminectomy syndrome, not elsewhere classified Category: Medical Plan The plan includes monitoring the postoperative pain and adjusting the spinal cord stimulator settings as needed to improve pain management. Dressing sites were without any signs of infection or pathological discharge and dressing change was done today in the clinic. The patient is advised to continue using the binder and avoid strenuous activities to ensure proper lead placement and healing. Avoid showers for 3 days. All questions and concerns have been answered and patient agreed with the treatment plan. Follow up as needed. Patient was informed and verbally consented to the use of an ambient scribe for clinic note documentation during this visit. Patient Instructions: - Continue using the binder and avoid strenuous activities. Avoid showers for 3 days. - Monitor for any signs of infection at the surgical site and report any concerns. - Use ice packs, Tylenol, Ibuprofen as needed to help with pain management. - Follow up as needed for program adjustments or if pain persists. Coding Level of Care Code Est Pt Level 3 (79746) Complex EM visit Add On G2211 Diagnoses Lumbar radiculopathy M54.16 Previous back surgery Z98.890 Postlaminectomy syndrome M96.1
[2025-07-08 10:23] VITALS: BP 136/90; PULSE 104; O2SAT 98; BMI 28.0
--- OUTSIDE RECORDS SUMMARY | 2025-07-08 12:12 | XMS_ITS | Clinical Summary ---
Author Organization [place] [address] [address] [facility] Building Address [address] [place] [address] Phone Care Team Providers Care Shank Maker Name Role Phone Sharri Tierney MD Primary Care Provider [phone] Allergies Active Allergy Reactions Criticality Noted Date [...] AM EDT Office Visit Internal [facility] - [facility] [address] [place] [address] Shun Tavera PA Chronic bilateral low back pain without sciatica (Primary Dx); Depression, unspecified depression type from Last 3 Months Immunizations Immunization Administration Dates Next Due Tdap Tetanus diptheria acell ular pertussis (Boostrix; Adacel) 7yo and older 02/27/2022 Surgical History Surgery Date Site/Laterality Comments OTHER SURGICAL HISTORY Left PROCEDURE: MT PYELOPLASTY COMPLICATED; 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, Dr Simeon OTHER SURGICAL HISTORY 08/01/2022 PROCEDURE: MT LAMNOTMY INCL W/DCMPRSN NRV ROOT 1 INTRSPC [...] PM EST Office Visit Internal Medicine - [facility] [address] [place] [address] Shun Tavera PA [address] [place] [address] Health Maintenance Due Date Last Done Comments Hepatitis B Vaccines (1 of 3 - 19+ 3-dose series) 01/28/2004 Pneumococcal Vaccine: Pediatrics (0 to 5 Years) and At-Risk Patients (6 to 49 Years) (1 of 2 - PCV) 01/28/2004 HPV Vaccines (1 - 3-dose SCD M series) 01/28/2012 HIV Screening 09/02/2022 Hepatitis C Screening 09/02/2022 Social Influencers of Health Screening 09/02/2022 Depression Screening 09/23/2024 COVID-19 Vaccine (3 - 2024-2 6 season) 2025 03/07/2021, 02/14/2021 Influenza Vaccine (#1) 2025 Cholesterol Screening (Lipid Panel) 10/28/2029 10/28/2024, 02/27/2022 DTaP,Tdap,and Td Vaccines (2 - Td or Tdap) 02/28/2032 02/27/2022 RSV Immunization Adult Patients (1 - 1-dose 75+ series) 01/28/2060 HIB Vaccines Aged Out No longer eligi [...] LAB CHEMISTRY METHOD 10/28/2024 7:40 PM EST [facility] Triglycerides 106 0 - 150 mg/dL LAB CHEMISTRY METHOD 10/28/2024 7:40 PM EST [facility] HDL 49 >=40 mg/dL LAB CHEMISTRY METHOD 10/28/2024 7:40 PM EST [facility] LDL Calculated 83 0 - 100 mg/dL LAB CHEMISTRY METHOD 10/28/2024 7:40 PM EST [facility] VLDL Cholesterol Bg 21.2 mg/dL LAB CHEMISTRY METHOD 10/28/2024 7:40 PM EST [facility] Non HDL Chol. (LDL+VLDL) 104 <145 mg/dL LAB CHEMISTRY METHOD 10/28/2024 7:40 PM EST [facility] Chol/HDL Ratio 3.1 0.0 - 4.4 LAB CHEMISTRY METHOD 10/28/2024 7:40 PM EST [facility] Blood Venous blood specimen / Unknown Venipuncture / Unknown 10/28/2024 12:52 PM EST 10/28/2024 12:52 PM EST [facility] BLOOD ORDERABLES Fi nal Result [facility] [address] [place] [address], from Last 3 Months or Most Recently Relevant to Health Maintenance Insurance 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
== END 2025-07-08 11:09 | disposition home or self-care (01) ==
LOC: HO.PMC 10:08
PROVIDERS: PCP Family Medicine; Visit Provider Nurse Practitioner Family
DX: M54.16 Radiculopathy, lumbar region (principal); Z98.890 Other specified postprocedural states; M96.1 Postlaminectomy syndrome, not elsewhere classified
CPT/HCPCS: 99213

== ENCOUNTER → 2025-07-08 10:08 | Outpatient (BNVA) | payer OTHER, SELFPAY | PROVIDERS: PCP Family Medicine; Visit Provider Nurse Practitioner Family | DX: M54.16 Radiculopathy, lumbar region (principal); M96.1 Postlaminectomy syndrome, not elsewhere classified; Z98.890 Other specified postprocedural states | CPT/HCPCS: 99212 ==